=== PATIENT | male | born 1960 | race Caucasian/White ===

== ENCOUNTER 2016-12-08 20:05 | Emergency (ER) | payer MEDICARE, OTHER ==
[~2016-12-08 20:05] MED LIST: ALEVE220 MG PO; AMOXIL500 MG PO; ASAB PO; BIAXIN5 PO; BIST PO; CIALIS2.5 MG PO; FISH OIL OTC PO; FISH OIL1200 MG PO; FLOMAX4 PO; FLONASE NAS; FORTAMET500 MG PO; GLUCPH PO; IBU800 PO; KLONO5 PO; LAMIS15 TOP; LIPITOR40 PO; LOP25 PO; LORTAB10 PO; MELATONIN5 M1 PO; METAGLIP1 TA1 PO; MULTIPLE VIT PO; MUSCLE RU3 TOP; NORCO1 TAB PO; PERCOCET1 TA4 PO; PR25 PO; PRILO PO; PRILOSEC40 MG PO; ROXICODONE15 MG PO; SEROQUEL50 MG PO; SOMATAB PO; SUCR PO; TRIAMCINOLON0.13 TOP; TYLENOL PM PO; XANAX1 MG PO; ZANAFLEX 4 MG TA4 MG PO; [UNRECOGNIZED DRUG - OTHER] PO
[2016-12-08 20:46] LABS: BASOPHILS 0.3 %; BASOPHILS ABSOLUTE 0.03 10/3/uL (0.0-0.16); EOSINOPHILS 1.1 %; EOSINOPHILS ABSOLUTE 0.13 10/3/uL (0.0-0.53); HEMATOCRIT 42.6 % (40.0-51.0); HEMOGLOBIN 14.3 g/dL (13.6-17.8); IMMATURE GRANULOCYTES 0.2 %; IMMATURE GRANULOCYTES ABSOLUTE 0.02 10/3/uL (0.0-0.11); LYMPHOCYTES 21.3 %; LYMPHOCYTES ABSOLUTE 2.54 10/3/uL (0.67-4.30); MEAN CORPUS HGB CONC 33.6 g/dL (32.0-36.0); MEAN CORPUSCULAR HEMOGLOB 30.2 pg (26.0-34.0); MEAN CORPUSCULAR VOLUME 89.9 fL (80-100); MEAN PLATELET VOLUME 10.9 fL (9.2-13.0); MONOCYTES 8.2 %; MONOCYTES ABSOLUTE 0.98 10/3/uL (0.21-1.20); NEUTROPHILS 68.9 %; NEUTROPHILS ABSOLUTE 8.23 10/3/uL (2.02-8.40); PLATELET COUNT 176 10/3/uL (150-400); RED CELL COUNT 4.74 10/6/uL (4.7-6.1)
[2016-12-08 20:47] LABS: ER CBC TAT 0 Hrs 11 Mins; WHITE BLOOD CELLS 11.9 10/3/uL (4.5-10.5)
[2016-12-08 20:48] LABS: MANUAL DIFF NO %
[2016-12-08 20:53] LABS: PARTIAL THROMBO TIME 33.5 SEC (22.5-37.2); PROTIME (NOT ORD) 13.5 SEC (12.0-14.5)
[2016-12-08 21:00] LABS: CALCIUM, SERUM 8.9 MG/DL (8.5-10.4); CHEST PAIN PROFILE TAT 0 Hrs 24 Mins; CHLORIDE, SERUM 106 MMOL/L (96-112); CO2 (CARBON DIOXIDE) 24 MMOL/L (24-34); CREATININE 0.95 MG/DL (0.70-1.30); GFR AFRICAN AMERICAN 102 ML/MIN (>=60); GFR NON AFRICAN AMERICAN 88 ML/MIN (>=60); GLUCOSE, SERUM 145 MG/DL (60-99); POTASSIUM, SERUM 4.5 MMOL/L (3.5-5.3); SODIUM, SERUM 136 MMOL/L (135-148); TROPONIN I <0.02 NG/ML (<0.05)
[2016-12-08 21:01] LABS: BUN (BLOOD UREA NITROGEN) 30 MG/DL (6-23)
== END 2016-12-08 21:54 | disposition left against medical advice (07) ==
LOC: ER 20:05
PROVIDERS: Emergency Medicine
DX: R42 Dizziness and giddiness (principal); Z53.21 Procedure and treatment not carried out due to patient leaving prior to being seen by health care provider; Z79.82 Long term (current) use of aspirin; Z79.899 Other long term (current) drug therapy
CPT/HCPCS: 80048; 83735; 84484; 85025; 85610; 85730; 99281